=== PATIENT | male | born 1965 | race American Indian/Alaskan Native ===

== ENCOUNTER 2018-08-17 07:34 | Day surgery (SDC) | payer BC, OTHER ==
[~2018-08-17] VITALS: Ht 175.3 cm; Wt 73.9 kg
--- NOTE | 2018-08-17 09:13 | NUR ---
08/17/18 0913 Kylah Olson 0854 PT ARRIVED IN PACU SLEEPY WITH NO C/O'S. ABD SOFT. 0910 AT BEDSIDE TALKING TO PT.
--- NOTE | 2018-08-17 19:22 | OR ---
[facility] [address], [place] [address] Signed DATE OF OPERATION: 08/17/2018 SURGEON: Hany Bowie MD PREOPERATIVE DIAGNOSES: 1. Colon screening. 2. Family history of colon cancer (uncle). POSTOPERATIVE DIAGNOSIS: Polyps x2. PROCEDURE PERFORMED: Total colonoscopy to cecum with snare polypectomy x1 and cold morcellation polypectomy x1. ANESTHESIA: Intravenous sedation, fentanyl 100 mcg, Versed 4 mg. INDICATION: This 53-year-old man is a patient of Flora Barton PA-C, at [facility]. He has family history of colon cancer in an uncle, who has since of the disease. He is symptom free. He has never had colonoscopy in the past and is admitted at this time to undergo screening colonoscopy. He understands the risk of bleeding, infection, and perforation related to colonoscopy and wished to proceed. FINDINGS: The prep was excellent. Complete colonoscopy was undertaken of the cecum. There were 2 polyps, one of them quite small, the other about 8 mm in size. Both were excised completely. DESCRIPTION OF PROCEDURE: The patient was brought to the endoscopy suite, placed in lateral decubitus position, and given intravenous sedation to a point of slurred speech and nystagmus. Digital rectal examination was normal. An Olympus video colonoscope was passed in the rectum and manipulated throughout the colon. In the proximal descending colon was a small polyp, which was excised with cold morcellation technique. The scope was advanced beyond this ultimately to the cecum. The ileocecal valve and appendiceal orifice were normal. Scope was withdrawn from that point and examination throughout showed no sign of abnormality until the sigmoid colon Electronically Signed By: HANY BOWIE MD 08/17/18 1922 PATIENT NAME: RY WHITE OPERATIVE REPORT DATE OF : 67 REPORT #: [id number] PHYSICIAN: HANY BOWIE MD PCP: FLORA BARTON REPORT IS CONFIDENTIAL AND NOT TO BE RELEASED WITHOUT AUTHORIZATION [facility] [address], [place] [address] Signed where a sessile polyp was noted. This measured about 1 cm in size. This was excised with cold snare polypectomy technique. Remnant of polyp or possibly even new polyps at the base of this polyp were excised with cold morcellation technique. Hemostasis was good despite lack of use of cautery. Further withdrawal of scope showed no rectal abnormality. The scope was removed and the patient was taken to recovery room in good condition. CONCLUDING DIAGNOSIS: Polyps x2. PLAN: Recommend repeat colonoscopy in 3 years, sooner if clinically indicated. He will return to the ongoing care of Flora Barton at [facility]. MD RAZ Busby/PHUCL /[id number] cc: Flora Barton Copies: FLORA BARTON ~ Electronically Signed By: HANY BOWIE MD 08/17/18 1922 PATIENT NAME: RY WHITE OPERATIVE REPORT DATE OF : 67 REPORT #: [id number] PHYSICIAN: HANY BOWIE MD PCP: FLORA BARTON REPORT IS CONFIDENTIAL AND NOT TO BE RELEASED WITHOUT AUTHORIZATION
== END 2018-08-17 09:47 | disposition home or self-care (01) ==
LOC: DS 07:34 → OPS 07:34 → DS 08:30 → OPS 09:47
PROVIDERS: Surgery
PROC: 0DBN8ZZ Excision of Sigmoid Colon, Via Natural or Artificial Opening Endoscopic (ICD-10-PCS; 2018-08-17)
PROC: 0DBM8ZZ Excision of Descending Colon, Via Natural or Artificial Opening Endoscopic (ICD-10-PCS; principal; 2018-08-17 08:30)
DX: Z12.11 Encounter for screening for malignant neoplasm of colon (principal); D12.5 Benign neoplasm of sigmoid colon; K63.5 Polyp of colon; Z80.0 Family history of malignant neoplasm of digestive organs
CPT/HCPCS: 99153; G0500; J2250; J3010; J7120

== ENCOUNTER 2022-05-07 13:00 | Day surgery (SDC) | payer BC, OTHER ==
[~2022-05-07] VITALS: Ht 175.3 cm; Wt 73.6 kg
--- NOTE | 2022-05-07 14:05 | NUR ---
QUESTIONS ANSWERED AND PT UPDATED ON WAIT TIME. NO CONCERNS AT THIS TIME.
--- NOTE | 2022-05-07 15:37 | NUR ---
1500: PATIENT UPDATED ON DR'S SCHEDULE AND DELAY. NO NEEDS AT THIS TIME. CALL LIGHT WITHIN REACH.
--- NOTE | 2022-05-07 16:00 | NUR ---
DR. BOWIE IN TO SPEAK WITH PATIENT.
--- NOTE | 2022-05-07 17:20 | NUR ---
05/07/22 1720 Lenka Murry 1713 PATIENT INTO PACU. PATIENT DROWSY AT BEDSIDE. OXYGEN AT 2 LITERS VIA NASAL CANNULA. BREATHING EQUAL AND UNLABORED. OXYGEN SATURATIONS MAINTAINING ABOVE 90%. PATIENT DENIES ANY PAIN OR BEING NAUSEATED. IVF INFUSING. 1715 PATIENT DROWSY. DENIES ANY PAIN OR DISCOMFORT. PATIENT OXYGEN TITRATED DOWN TO ROOM AIR. OXYGEN SATURATIONS ABOVE 95% ON ROOM AIR. IVF INFUSING. PATIENT RESTING.
--- NOTE | 2022-05-08 09:36 | OR ---
[facility] [address], [place] [address] Signed DATE OF OPERATION: 05/07/2022 SURGEON: Hany Bowie MD PREOPERATIVE DIAGNOSIS: 1. History of colon polyps in 2013 (tubulovillous adenoma, sigmoid and hyperplastic polyp). 2. Family history of colon cancer (uncle). POSTOPERATIVE DIAGNOSIS: Polyps x3. PROCEDURE: Total colonoscopy to cecum with cold morcellation polypectomy x3. ANESTHESIA: Intravenous sedation, fentanyl 100 mcg, Versed 6 mg. INDICATION: This 57-year-old [place] man is a patient of DARBY Blake at [facility]. He last underwent colonoscopy by me nearly 10 years ago in 2012. He was found to have a tubulovillous adenoma of the sigmoid and hyperplastic polyp as well. He is currently symptom free of bleeding, diarrhea or constipation symptoms. He additionally does have family history of colon cancer in a paternal uncle. He is admitted at this time to undergo colonoscopy. He understands the risks of bleeding, infection, and perforation. FINDINGS: The prep was excellent. Complete colonoscopy was undertaken to the cecum without question. He had two small adenomatous type polyps at about 80 cm, which were excised with cold morcellation technique and another adenoma in the sigmoid also excised. The remaining colon was normal. DESCRIPTION OF PROCEDURE: The patient was brought to the endoscopy suite and placed in lateral decubitus position, given intravenous sedation to the point of slurred speech and nystagmus. Digital rectal examination was normal. An Olympus video colonoscope was passed in the rectum and manipulated throughout the colon ultimately intubating the cecum itself. The ileocecal valve and appendiceal orifice were normal. The scope was withdrawn from that point and examination undertaken Electronically Signed By: HANY BOWIE MD 05/08/22 0936 PATIENT NAME: RY WHITE OPERATIVE REPORT DATE OF : 67 REPORT #: [id number] PHYSICIAN: HANY BOWIE MD PCP: NO PRIMARY CARE PHYSICIAN REPORT IS CONFIDENTIAL AND NOT TO BE RELEASED WITHOUT AUTHORIZATION [facility] [address], [place] [address] Signed showed no sign of abnormality until approximately 80 cm from the anal verge. Two small adenomatous-appearing polyps were noted. Both were excised with cold morcellation technique. The scope was further withdrawn and in the sigmoid, a similar such polyp was noted. This too was excised with cold morcellation technique. Further withdrawal out for retroflexed view in the rectum, which was normal. Scope was removed. The patient was taken to the recovery room in good condition. CONCLUDING DIAGNOSES: Polyps x3 (excised). PLAN: Recommend repeat colonoscopy in three years, sooner if clinically indicated. He will return to the ongoing care of DARBY Blake at [facility]. MD RAZ Busby/GRETTA /[id number] cc: Flora Barton Copies: FLORA BARTON ~ Electronically Signed By: HANY BOWIE MD 05/08/22 0936 PATIENT NAME: RY WHITE OPERATIVE REPORT DATE OF : 67 REPORT #: [id number] PHYSICIAN: HANY BOWIE MD PCP: NO PRIMARY CARE PHYSICIAN REPORT IS CONFIDENTIAL AND NOT TO BE RELEASED WITHOUT AUTHORIZATION
--- NOTE | 2022-05-09 16:41 | PATH ---
[facility] [address] [facility] [place], [place] [address] Signed SPECIMEN(S): A COLON POLYP AT 80 CM SPECIMEN(S): B SIGMOID POLYP SPECIMEN SOURCE: A. COLON POLYP AT 80 CM B. SIGMOID POLYP CLINICAL HISTORY: Surveillance colonoscopy, personal history of colon polyps, family history of colon cancer. Postop Dx: Polyps x 3. FINAL PATHOLOGIC DIAGNOSIS: A. Colon polyp at 80 cm: - Tubular adenoma (three fragments). B. Sigmoid polyp: - Hyperplastic polyp (one fragment). JVR:[facility]:C2NR MICROSCOPIC EXAMINATION: Histologic sections of all submitted blocks are examined by light microscopy. These findings, together with the gross examination, support the pathologic diagnosis. GROSS DESCRIPTION: A. The specimen, labeled and designated "[place], colon polyp at 80 cm," is received in formalin and consists of three hart soft tissue fragments, ranging from 0.2-0.3 cm. Entirely submitted in (A1). B. The specimen, labeled and designated "[place], sigmoid polyp," is received in formalin and consists of one hart soft tissue fragment, 0.2 cm. Entirely submitted in (B1). VB (under the direct supervision of a pathologist) The Gross Description was prepared using a voice recognition system. The report was reviewed for accuracy; however, sound-alike word errors, addition and/or deletions may occur. If there is any question about this report, please contact Client Services. PERFORMING LABORATORY: The technical component was performed by [facility], [address] [place] [id number] (CLIA# [id number]). The professional interpretation was performed by [facility], [facility], [address] [place] [address] (CLIA#: [id number]). PATIENT NAME: RY WHITE PATHOLOGY DATE OF : 67 REPORT #: [id number] PHYSICIAN: [facility] PCP: NO PRIMARY CARE PHYSICIAN REPORT IS CONFIDENTIAL AND NOT TO BE RELEASED WITHOUT AUTHORIZATION [address] [place] [address] Signed Diagnostician: Davian Hollins MD Pathologist Electronically Signed 05/09/2022 Copies: ~ PATIENT NAME: RY WHITE PATHOLOGY DATE OF : 67 REPORT #: [id number] PHYSICIAN: [facility] PCP: NO PRIMARY CARE PHYSICIAN REPORT IS CONFIDENTIAL AND NOT TO BE RELEASED WITHOUT AUTHORIZATION
== END 2022-05-07 17:50 | disposition home or self-care (01) ==
LOC: DS 13:00 → OPS 13:00 → DS 13:09 → OPS 17:50
PROVIDERS: ATTEND Surgery
PROC: 0DBN8ZZ Excision of Sigmoid Colon, Via Natural or Artificial Opening Endoscopic (ICD-10-PCS; principal; 2022-05-07 14:00)
DX: D12.9 Benign neoplasm of anus and anal canal (principal); Z80.0 Family history of malignant neoplasm of digestive organs; Z86.010 Personal history of colon polyps; K63.5 Polyp of colon
CPT/HCPCS: 99153; G0500; J2250; J3010; J7121